=== PATIENT | female | born 1930 | race American Indian/Alaskan Native ===

== ENCOUNTER 2016-07-28 05:44 | Inpatient (IN) | payer MEDICARE, BC ==
--- NOTE | 2016-07-28 06:09 | ED PDOC ---
Arrival/HPI - General Chief Complaint: Trauma Time Seen by Provider: 07/28/16 05:49 Historian: Patient - History of Present Illness Narrative History of Present Illness (Text): 07/28/16 06:09 Mellisa Hartman is an 85 year old female, whose past medical history includes hypertension, diabetes, trigeminal neuralgia, and dementia, who presents to the Emergency department brought in by EMS status post fall at home. As per EMS, patient was found on the ground at home and family was unsure as to how long she was on the floor. Patient reports diffuse body aches. Patient is a poor historian. Limited HPI and ROS due to patient's dementia. Time/Duration: Other (today) Symptom Onset: Sudden Symptom Course: Unchanged Activities at Onset: Rest, Light Context: Home Past Medical History - Provider Review Nursing Documentation Reviewed: Yes - Neurological Hx Alzheimer's Disease: Yes Hx Dementia: Yes Other/Comment: Per EMS report - Psychiatric Hx Substance Use: (poor histo) Family/Social History - Physician Review Nursing Documentation Reviewed: Yes Family/Social History: No Known Family HX Smoking Status: poor histo Hx Alcohol Use: (poor histo) Hx Substance Use: (poor histo) Allergies/Home Meds Allergies/Adverse Reactions: Allergies No Known Allergies Allergy (Verified 07/28/16 05:57) Home Medications: Home Meds Medication Instructions Recorded Confirmed Levetiracetam [Roweepra] 1,500 mg PO BID 07/28/16 07/28/16 Metformin HCl [Glucophage] 500 mg PO BID 07/28/16 07/28/16 Metoprolol Tartrate [Lopressor] 25 mg PO BID 07/28/16 07/28/16 Review of Systems - Review of Systems Systems not reviewed;Unavailable: Dementia Musculoskeletal: Myalgias Physical Exam Vital Signs Reviewed: Yes Vital Signs Temp Pulse Resp BP Pulse Ox 07/28/16 15:00 98.8 F 78 18 188/92 H 98 07/28/16 13:30 80 18 190/100 H 98 07/28/16 11:40 78 18 171/99 H 98 07/28/16 09:11 72 18 166/76 H 97 07/28/16 07:50 98.8 F 98 H 20 177/86 H 98 07/28/16 07:25 98.8 F 82 20 155/76 H 94 L 07/28/16 06:15 92 H 18 144/78 100 07/28/16 05:56 98.5 F 105 H 20 111/74 100 Temperature: Afebrile Blood Pressure: Normal Pulse: Regular Respiratory Rate: Normal Appearance: Positive for: Non-Toxic Pain Distress: None Mental Status: Positive for: Confused, other (Alert) - Systems Exam Head: Present: Atraumatic, Normocephalic Pupils: Present: PERRL Extroacular Muscles: Present: EOMI Conjunctiva: Present: Normal Mouth: Present: Moist Mucous Membranes Neck: Present: Normal Range of Motion Respiratory/Chest: Present: Clear to Auscultation, Good Air Exchange. No: Respiratory Distress, Accessory Muscle Use Cardiovascular: Present: Regular Rate and Rhythm, Normal S1, S2. No: Murmurs Abdomen: Present: Normal Bowel Sounds. No: Tenderness, Distention, Peritoneal Signs Upper Extremity: Present: Normal ROM, NORMAL PULSES, Neurovascularly Intact. No : Cyanosis, Edema Lower Extremity: Present: NORMAL PULSES, Normal ROM. No: Edema, Cyanosis Neurological: Present: GCS=15, CN II-XII Intact Skin: Present: Warm, Dry, Normal Color. No: Rashes Psychiatric: Present: Alert Medical Decision Making ED Course and Treatment: 07/28/16 06:09 Impression: 85 year old female brought in by EMS s/p fall at home. Plan: -- CT Head w/o contrast -- EKG -- Chest X-ray -- Labs, cardiac enzymes, ammonia, alcohol level, blood cultures -- Urinalysis, urine drug screen, urine cultures -- Reassess and disposition Prior Visits: Notes and results from previous visits were reviewed. Progress Notes: Reviewed EKG, NSR at [address] Non-specific ST/T wave changes. - Lab Interpretations Microbiology Results: Microbiology Results 07/28/16 07:00 Blood-Venous Blood Culture - Preliminary NO GROWTH AFTER 48 HOURS 07/28/16 06:40 Blood-Venous Blood Culture - Preliminary NO GROWTH AFTER 48 HOURS 07/28/16 07:00 Urine,Clean Catch Urine Culture - Final No Growth (<1,000 CFU/ML) Lab Results: 07/29/16 07:30 07/29/16 07:30 Lab Results 07/29/16 08:40: TSH 3rd Generation 1.44 07/29/16 08:40: Iron 51, TIBC 280, % Saturation 18 L 07/29/16 07:30: Hemoglobin A1c 5.1 07/29/16 07:30: Sodium 139, Potassium 3.8, Chloride 103, Carbon Dioxide 27, Anion Gap 13, BUN 10, Creatinine 0.7, Est GFR ( Amer) > 60, Est GFR (Non- Af Amer) > 60, Random Glucose 77, Calcium 11.0 H, Magnesium 1.5 L, Ferritin 35.1 , Total Bilirubin 0.6, AST 25, ALT 29, Alkaline Phosphatase 101, Total Creatine Kinase 61, Troponin I 0.06 D, Total Protein 7.2, Albumin 3.8, Globulin 3.4, Albumin/Globulin Ratio 1.1, Vitamin B12 737, Folate > 20.0 07/29/16 07:30: WBC 6.4 D, RBC 4.21, Hgb 10.5 L, Hct 31.0 L, MCV 73.6 L, MCH 24.9 L, MCHC 33.9, RDW 15.3 H, Plt Count 322, MPV 10.0, Gran % 51.4, Lymph % ( Auto) 37.3 H, [place] % (Auto) 8.8 H, Eos % (Auto) 1.9, Baso % (Auto) 0.6, Gran # 3.27, Lymph # 2.4, [place] # 0.6, Eos # 0.1, Baso # 0.04 07/29/16 06:30: Procalcitonin < 0.50 H 07/28/16 13:30: POC Glucose (mg/dL) 97 07/28/16 07:00: Urine Opiates Screen Negative, Urine Methadone Screen Negative, Ur Barbiturates Screen Negative, Ur Phencyclidine Scrn Negative, Ur Amphetamines Screen Negative, U Benzodiazepines Scrn Negative, U Oth Cocaine Metabols Negative, U Cannabinoids Screen Negative 07/28/16 07:00: Urine Color Yellow, Urine Appearance Clear, Urine pH 7.0, Ur Specific [place] 1.015, Urine Protein Negative, Urine Glucose (UA) Negative, Urine Ketones Negative, Urine Blood Negative, Urine Nitrate Negative, Urine Bilirubin Negative, Urine Urobilinogen 0.2, Ur Leukocyte Esterase Negative 07/28/16 06:40: Alcohol, Quantitative < 10 07/28/16 06:40: Ammonia 14 07/28/16 06:40: Sodium 139, Potassium 4.1, Chloride 102, Carbon Dioxide 28, Anion Gap 13, BUN 14, Creatinine 0.8, Est GFR ( Amer) > 60, Est GFR (Non- Af Amer) > 60, Random Glucose 114 H, Calcium 11.1 H, Phosphorus 2.7, Magnesium 1.4 L, Total Bilirubin 0.5, AST 25, ALT 22, Alkaline Phosphatase 104, Lactate Dehydrogenase 554, Total Creatine Kinase 56, Troponin I 0.03, Total Protein 7.6 , Albumin 4.2, Globulin 3.5, Albumin/Globulin Ratio 1.2 07/28/16 06:40: PT 11.3, INR 1.05, APTT 22.7 L 07/28/16 06:40: WBC 12.3 H, RBC 4.23, Hgb 10.4 L, Hct 31.5 L, MCV 74.5 L, MCH 24.6 L, MCHC 33.0, RDW 15.4 H, Plt Count 346, MPV 9.4, Gran % 85.5 H, Lymph % ( Auto) 9.3 L, [place] % (Auto) 4.9, Eos % (Auto) 0.1 L, Baso % (Auto) 0.2, Gran # 10.53 H, Lymph # 1.2, [place] # 0.6, Eos # 0.0, Baso # 0.03 - RAD Interpretation Radiology Orders: 07/28/16 06:22 HEAD W/O CONTRAST [CT] Stat 07/28/16 06:23 CHEST PORTABLE [RAD] Stat 07/28/16 07:14 PELVIS ONE VIEW [RAD] Stat 07/28/16 08:42 BRAIN WITHOUT CONTRAST [MRI] Stat 07/28/16 12:10 CHEST W/O CONTRAST [CT] Urgent - Medication Orders Current Medication Orders: Acetaminophen (Tylenol 325mg Tab) 650 mg PO Q6H PRN PRN Reason: Fever >100.4 F Insulin Human Lispro (Humalog Med) 0 units SC ACHS [facility] PRN Reason: Protocol Last Admin: 07/30/16 17:31 Dose: Not Given Non-Admin Reason: Blood Sugar Parameter Levetiracetam (Keppra) 500 mg PO BID [facility] Last Admin: 07/30/16 17:32 Dose: 500 mg Magnesium Oxide (Mag-Ox) 400 mg PO BID [facility] Last Admin: 07/30/16 17:33 Dose: 400 mg Metoprolol Tartrate (Lopressor) 25 mg PO BID [facility] Last Admin: 07/30/16 17:32 Dose: 25 mg Pantoprazole Sodium (Protonix Ec Tab) 40 mg PO 0630 [facility] Last Admin: 07/30/16 10:09 Dose: 40 mg Ziprasidone (Geodon Inj) 10 mg IM Q6H PRN PRN Reason: Agitation Last Admin: 07/30/16 11:08 Dose: 10 mg Discontinued Medications Clonidine HCl (Catapres-Tts2 0.2 Mg/24 Hr) 1 patch TD ONCE STA Stop: 07/28/16 15:12 Last Admin: 07/28/16 15:20 Dose: 1 patch Ceftriaxone Sodium (Rocephin 1 Gram Ivpb) 1 gm in 100 mls @ 100 mls/hr IVPB DAILY [facility] PRN Reason: Protocol Last Admin: 07/29/16 17:23 Dose: Azithromycin (Zithromax 500mg In Ns) 500 mg in 250 mls @ 167 mls/hr IVPB DAILY [facility] PRN Reason: Protocol Last Admin: 07/29/16 17:24 Dose: Magnesium Sulfate 2 gm/ Sodium (Chloride) 104 mls @ 102 mls/hr IVPB ONCE ONE Stop: 07/29/16 09:13 Last Admin: 07/29/16 17:23 Dose: Magnesium Sulfate/Dextrose (Magnesium Sulfate 1 Gm/100 Ml D5w) 1 gm in 100 mls @ 100 mls/hr IV ONCE ONE Stop: 07/30/16 12:18 Last Admin: 07/30/16 13:55 Dose: 100 mls/hr Potassium Chloride (Potassium Chloride 10 Meq/100 Ml) 10 meq in 100 mls @ 100 mls/hr IVPB Q2H [facility] Stop: 07/30/16 14:29 Last Admin: 07/30/16 15:37 Dose: 100 mls/hr Levetiracetam (Keppra) 1,500 mg PO BID [facility] Last Admin: 07/30/16 10:08 Dose: 1,500 mg Lorazepam (Ativan) 0.5 mg IM STAT STA PRN Reason: Protocol Stop: 07/28/16 22:55 Last Admin: 07/29/16 00:15 Dose: 0.5 mg Lorazepam (Ativan) 1 mg IM ONCE ONE PRN Reason: Protocol Stop: 07/29/16 15:42 Last Admin: 07/29/16 17:22 Dose: Not Given Non-Admin Reason: Patient Refused Metformin HCl (Glucophage) 500 mg PO BID [facility] Last Admin: 07/29/16 10:18 Dose: Not Given Non-Admin Reason: NPO - Transfer of Care Patient signed out to Dr:: liz labs ct xray and dispo - Scribe Statement The provider has reviewed the documentation as recorded by the Scribstone Arredondo All medical record entries made by the [place] were at my direction and personally dictated by me. I have reviewed the chart and agree that the record accurately reflects my personal performance of the history, physical exam, medical decision making, and the department course for this patient. I have also personally directed, reviewed, and agree with the discharge instructions and disposition. Disposition/Present on Arrival - Present on Arrival Any Indicators Present on Arrival: No History of DVT/PE: No History of Uncontrolled Diabetes: No Urinary Catheter: No History of Decub. Ulcer: No History Surgical Site Infection Following: None - Disposition Have Diagnosis and Disposition been Completed?: Yes Diagnosis: Altered mental status Disposition: HOME/ ROUTINE Disposition Time: 07:00 Patient Problems: Current Active Problems Problem Status Onset Altered mental status Acute Condition: FAIR
[2016-07-28 06:58] LABS: ADD MANUAL DIFF? NO
[2016-07-28 07:04] LABS: BASO # 0.03 K/mm3 (0.0-2.0); BASO % 0.2 % (0.0-3.0); EOS % 0.1 % (1.5-5.0); GRAN # 10.53 (1.4-6.5); GRAN % 85.5 % (50.0-68.0); HEMATOCRIT 31.5 % (36.0-48.0); LYMPH # 1.2 (1.2-3.4); LYMPH % 9.3 % (22.0-35.0); MEAN CELL VOLUME 74.5 fL (80.0-105.0); MEAN CORPUSCULAR HEMOGLOBIN 24.6 pg (25.0-35.0); MEAN PLATELET VOLUME 9.4 fl (7.0-11.0); MONO # 0.6 (0.1-0.6); MONO % 4.9 % (1.0-6.0); PLATELET COUNT 346 10^3/uL (120.0-450.0); RED CELL DISTRIBUTION WIDTH 15.4 % (11.5-14.5); WHITE BLOOD COUNT 12.3 10^3/ul (4.5-11.0)
[2016-07-28 07:17] LABS: ALB/GLOB RATIO 1.2 (1.1-1.8); ALKALINE PHOSPHATASE 104 U/L (38-133); ALT/SGPT 22 U/L (7-56); AST/SGOT 25 U/L (15-39); BILIRUBIN,TOTAL 0.5 mg/dL (0.2-1.3); BLOOD UREA NITROGEN 14 mg/dL (7-21); CALCIUM 11.1 mg/dL (8.4-10.5); CARBON DIOXIDE 28 mmol/L (21-33); CHLORIDE 102 mmol/L (98-107); GFR AFRICAN-AMERICAN > 60; GLUCOSE,RANDOM 114 mg/dL (70-110); INR 1.05 (0.93-1.08); MAGNESIUM 1.4 mg/dL (1.7-2.2); PARTIAL THROMBOPLASTIN TIME 22.7 Seconds (23.7-30.8); PHOSPHOROUS 2.7 mg/dL (2.5-4.5); POTASSIUM 4.1 mmol/L (3.6-5.0); SODIUM 139 mmol/L (132-148); TOTAL PROTEIN 7.6 g/dL (5.8-8.3)
--- NOTE | 2016-07-28 07:21 | ED PDOC ---
Physical Exam Vital Signs Temp Pulse Resp BP Pulse Ox 07/28/16 06:15 92 H 18 144/78 100 07/28/16 05:56 98.5 F 105 H 20 111/74 100 Medical Decision Making ED Course and Treatment: 07/28/16 07:00 Patient signed out to me by Dr. Olguin pending labs, CT, reevaluation, and disposition. 07/28/16 08:25 Patien with son at bedside. Son explained he is unsure how she fell. Patient can 't verbalize how she fell. Patient keeps saying "thank you" and "okay okay." Son states this is not her baseline. He states in the morning she is a little confused but this does not usually happen. Son reports patient has a history of seizures and is on Keppra 1500 BID. Differential diagnosis includes but is not limited to: CVA vs seizure Paged Dr. Fuller (PMD: Dr. Rodarte) 07/28/16 08:[address] Fuller who agrees with plan to place on tele observation for CVA vs Sz. Recommended Dr. Urrutia for consult and MRI which she will f/u results on. - Critical Care Critical Care Minutes: 30 minutes - Lab Interpretations Lab Results: 07/28/16 06:40 07/28/16 06:40 Lab Results 07/28/16 07:00: Urine Opiates Screen Negative, Urine Methadone Screen Negative, Ur Barbiturates Screen Negative, Ur Phencyclidine Scrn Negative, Ur Amphetamines Screen Negative, U Benzodiazepines Scrn Negative, U Oth Cocaine Metabols Negative, U Cannabinoids Screen Negative 07/28/16 07:00: Urine Color Yellow, Urine Appearance Clear, Urine pH 7.0, Ur Specific [place] 1.015, Urine Protein Negative, Urine Glucose (UA) Negative, Urine Ketones Negative, Urine Blood Negative, Urine Nitrate Negative, Urine Bilirubin Negative, Urine Urobilinogen 0.2, Ur Leukocyte Esterase Negative 07/28/16 06:40: Alcohol, Quantitative < 10 07/28/16 06:40: Ammonia 14 07/28/16 06:40: Sodium 139, Potassium 4.1, Chloride 102, Carbon Dioxide 28, Anion Gap 13, BUN 14, Creatinine 0.8, Est GFR ( Amer) > 60, Est GFR (Non- Af Amer) > 60, Random Glucose 114 H, Calcium 11.1 H, Phosphorus 2.7, Magnesium 1.4 L, Total Bilirubin 0.5, AST 25, ALT 22, Alkaline Phosphatase 104, Lactate Dehydrogenase 554, Total Creatine Kinase 56, Troponin I 0.03, Total Protein 7.6 , Albumin 4.2, Globulin 3.5, Albumin/Globulin Ratio 1.2 07/28/16 06:40: PT 11.3, INR 1.05, APTT 22.7 L 07/28/16 06:40: WBC 12.3 H, RBC 4.23, Hgb 10.4 L, Hct 31.5 L, MCV 74.5 L, MCH 24.6 L, MCHC 33.0, RDW 15.4 H, Plt Count 346, MPV 9.4, Gran % 85.5 H, Lymph % ( Auto) 9.3 L, [place] % (Auto) 4.9, Eos % (Auto) 0.1 L, Baso % (Auto) 0.2, Gran # 10.53 H, Lymph # 1.2, [place] # 0.6, Eos # 0.0, Baso # 0.03 - RAD Interpretation Radiology Orders: 07/28/16 06:22 HEAD W/O CONTRAST [CT] Stat 07/28/16 06:23 CHEST PORTABLE [RAD] Stat 07/28/16 07:14 PELVIS ONE VIEW [RAD] Stat Disposition/Present on Arrival - Present on Arrival Any Indicators Present on Arrival: No History of DVT/PE: No History of Uncontrolled Diabetes: No Urinary Catheter: No History of Decub. Ulcer: No History Surgical Site Infection Following: None - Disposition Have Diagnosis and Disposition been Completed?: Yes Diagnosis: Altered mental status Disposition: HOME/ ROUTINE Disposition Time: 08:42 Patient Plan: Observation Condition: FAIR Referrals: Bienvenido Rodarte MD [Primary Care Provider] - Follow up with primary NIHSS Scale ([place]) Time Performed: 08:20 - How Severe is the [place] Baseline Visual: 0=No visual loss
[2016-07-28 07:22] LABS: URINE APPEARANCE CLEAR (CLEAR); URINE BILIRUBIN NEGATIVE (NEGATIVE); URINE BLOOD NEGATIVE (NEGATIVE); URINE COLOR YELLOW (YELLOW); URINE GLUCOSE (UA) NEGATIVE (NEGATIVE); URINE KETONE NEGATIVE (NEGATIVE); URINE LEUKOCYTE ESTERASE NEGATIVE Leu/uL (NEGATIVE); URINE PROTEIN NEGATIVE mg/dL (<30 mg/dL); URINE UROBILINOGEN 0.2 E.U./dL (<1 E.U./dL)
[2016-07-28 07:27] LABS: TROPONIN I 0.03 ng/mL
--- NOTE | 2016-07-28 07:34 | CT ---
PROCEDURE: CT HEAD WITHOUT CONTRAST. HISTORY: Altered mental status COMPARISON: None available. TECHNIQUE: Axial computed tomography images were obtained through the head/brain without intravenous contrast. Radiation dose: Total exam DLP = 680.76 mGy-cm. This CT exam was performed using one or more of the following dose reduction techniques: Automated exposure control, adjustment of the mA and/or kV according to patient size, and/or use of iterative reconstruction technique. FINDINGS: HEMORRHAGE: No intracranial hemorrhage. BRAIN: There is an old infarction in the right posterior parietal and occipital lobes. There are mild chronic microangiopathic changes. There is no mass, mass effect or abnormal extra-axial fluid collection. VENTRICLES: There is moderate age-related global parenchymal volume loss and proportionate enlargement of the ventricles and cortical sulci. CALVARIUM: There is no calvarial fracture or extracranial soft tissue swelling. PARANASAL SINUSES: Predominantly clear. MASTOID AIR CELLS: Bilateral mastoid air cells are underdeveloped OTHER FINDINGS: None. IMPRESSION: No acute intracranial abnormality. 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
--- NOTE | 2016-07-28 08:26 | RAD ---
PROCEDURE: Radiographs of the pelvis. HISTORY: fall COMPARISON: None. FINDINGS: BONES: Pelvic Bones: Unremarkable. Hips: Grossly unremarkable. JOINTS: Sacroiliac Joints: Unremarkable. Pubic Symphysis: Mild degenerative changes OTHER FINDINGS: None. IMPRESSION: No acute findings
--- NOTE | 2016-07-28 08:27 | RAD ---
HISTORY: ams COMPARISON: No prior. FINDINGS: LUNGS: No active pulmonary disease. PLEURA: No significant pleural effusion identified, no pneumothorax apparent. CARDIOVASCULAR: Normal. OSSEOUS STRUCTURES: No significant abnormalities. VISUALIZED UPPER ABDOMEN: Normal. OTHER FINDINGS: None. IMPRESSION: No active disease.
--- NOTE | 2016-07-28 10:57 | CARD ---
APPROVED REPORT EKG Measurement Heart [id number] <Conclusion> Normal sinus rhythm Left bundle branch block
--- NOTE | 2016-07-28 11:23 | MRI ---
PROCEDURE: MRI BRAIN WITHOUT CONTRAST HISTORY: AMS r/o CVA COMPARISON: CT of the head performed on the same day TECHNIQUE: Multiplanar, multisequence MR images of the brain were obtained without intravenous contrast enhancement. The study was degraded by motion artifact FINDINGS: HEMORRHAGE: There is a chronic hemorrhage and encephalomalacia in the right parietal lobe. DWI: No evidence of an acute or early subacute infarction. The study is limited BRAIN PARENCHYMA: No mass effect or edema. No atrophy or chronic microvascular ischemic changes. VENTRICLES: Unremarkable. No hydrocephalus. CRANIUM: Unremarkable. ORBITS: Grossly unremarkable. PARANASAL SINUSES/MASTOIDS: Clear VASCULAR SYSTEM: Skull base flow voids intact. OTHER FINDINGS: None. 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 The study is severely limited by motion artifact.
--- NOTE | 2016-07-28 12:35 | HP ---
The patient is 85 years old who was brought by EMS when she had a mechanical fall at home. According to EMS, she was found on the floor when they reached the field. Family reported they do not know ho w long she was on the floor. They do not know if she felt dizzy or she had a mechanical fall. Howev er, she complained of generalized weakness, and complained of feeling very weak with body aches and p ain. The patient does not give much history. She says yes and okay to everything. PAST MEDICAL HISTORY: Significant for mild dementia, and past medical history is significant for: 1. Hypertension. 2. Non-insulin dependent diabetes. 3. History of seizure disorder. ALLERGIES: She is not allergic to any medications. MEDICATIONS AT HOME: She is on metoprolol 25 twice a day, metformin 500 twice a day, Keppra 1500 twi ce a day. SOCIAL HISTORY: She lives with her family. Denies smoking or drinking or alcohol use. REVIEW OF SYSTEMS: She complained of generalized aches and pain and weakness. PHYSICAL EXAMINATION: GENERAL: She is awake and alert. VITAL SIGNS: She has temperature of 101.9, pulse 82, respirations 20, blood pressure 136/61. LUNGS: Bilateral fair airflow. No rhonchi or crackle. HEART: S1, S2 audible. ABDOMEN: Soft, nontender. No rebound, no guarding. NEUROLOGIC: The patient is awake and alert, but confused, disoriented. LABORATORY EXAM: WBC 12.3, hemoglobin 10.4, hematocrit 31.5, platelets 346. PT 11.3, INR 1.05. Marah alayna: Sodium 139, potassium 4.1, chloride 102, CO2 of 28, BUN 14, creatinine 0.8, blood sugar 114, calcium 11.1, phosphorus 2.7, magnesium 1.4. LFTs are within normal limits. Urinalysis is negative . Urine tox is negative. CT scan of the head shows old right [employer] and MCA territory infarct involving occipital and posterior p arietal lobes. X-ray of chest shows no active disease. MRI of the brain shows old CVA. ASSESSMENT: 1. Leukocytosis with high-grade fever of 101. Etiology unknown. 2. Altered mental status. 3. Status post fall. 4. Non-insulin dependent diabetes. 5. Hypertension. 6. Seizure disorder. PLAN: Blood culture and urine cultures are sent. Will start empirically on Rocephin and vancomycin. We will get ID ____ by Dr. Webb and out of bed to chair. GI and DVT prophylaxis has been sta rted. Marley Fuller MD cc: [phone] TT: 07/28/2016 12:35:09 jn
[2016-07-28] MEDS: cefTRIAXone 1 gm 1 GM/100 ML BAG IVPB SCH (13:10)
[2016-07-28] MEDS: Insulin Lispro (humaLOG) MEDIUM Coverage SC SCH ×3 (13:30→22:14)
[2016-07-28] MEDS: Azithromycin 500MG/NS 250ml 500 MG/250 ML BAG IVPB SCH (14:15)
--- NOTE | 2016-07-28 14:34 | CT ---
PROCEDURE: CT Chest without contrast HISTORY: /sob COMPARISON: None. TECHNIQUE: Contiguous axial images were obtained through the chest without intravenous contrast enhancement. Sagittal and coronal reconstructions were performed. Radiation dose (DLP): 319 mGy-cm. This CT exam was performed using one or more of the following dose reduction techniques: Automated exposure control, adjustment of the mA and/or kV according to patient size, and/or use of iterative reconstruction technique. FINDINGS: LUNGS: Clear lungs. Visualized airway clear. MEDIASTINUM: Unremarkable thoracic aorta. No aneurysm. Normal sized heart. Main pulmonary artery unremarkable. No vascular congestion. No lymphadenopathy. PLEURA: No pleural fluid. No pneumothorax. BONES: No fracture. No destructive lesion. UPPER ABDOMEN: Grossly unremarkable. OTHER FINDINGS: None. IMPRESSION: Unremarkable non-contrast enhanced CT of the chest.
[2016-07-28 16:30] VITALS: BMI 21.4
--- NOTE | 2016-07-28 19:30 | CON ---
DATE: 07/28/2016 CHIEF COMPLAINT: Change in mental status as well as questionable seizure. HISTORY OF PRESENT ILLNESS: This is an 85-year-old woman with past medical history of hyperten marylou, non-insulin dependent diabetes mellitus, history of seizure disorder on Keppra 1500 mg p.o. b.i .d. , who came to the hospital. Was found on the floor and is unaware of how long she was there. Sh stone does not know if she felt dizzy or if she had a mechanical fall. She has generalized weakness and has generalized aches and body pain but gives a very limited history. Does seem as to have moderate to severe cognitive impairment. Her MRI of the brain just shows chronic hemorrhage, encephalomalacia in the right parietal and right occipital lobe to indicate old prior infarcts, likely from where she gets seizures and, therefore, she is on Keppra 1500 mg p.o. b.i.d. She has elevated systolic and di astolic blood pressures. She is currently delirious right now. 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 ALLERGIES: No known drug allergies. REVIEW OF SYSTEMS: A 14-point review of systems negative except as in the HPI. SOCIAL HISTORY: No illicit drug use, smoking, or ETOH abuse. FAMILY HISTORY: Noncontributory. ALLERGIES: No known drug allergies. MEDICATIONS: Reviewed via nursing reconciliation sheet. PHYSICAL EXAMINATION: VITAL SIGNS: Temperature of 98, pulse rate of 72, blood pressure 166/76, respiratory rate 18, oxygen saturation 97% on room air. GENERAL: The patient is sitting up in bed in no acute distress. HEENT: Atraumatic, normocephalic. PERRLA. Extraocular muscles intact. NECK: Supple, no JVD, no adenopathy noted. LUNGS: Clear to auscultation. No adventitious sounds. HEART: S1, S2, normal rate and rhythm. No murmurs, rubs, or gallops. ABDOMEN: Soft, nontender, nondistended. Bowel sounds present. EXTREMITIES: No clubbing, no cyanosis. Peripheral pulses 2+ felt bilaterally. NEUROLOGIC: The patient is alert and oriented to person and place, not much of month or year. Recal l after 5 minutes is 0/3. She has poor judgment, poor attention span, slow thought process. Confabu lation. Cranial nerves II through XII are intact. MOTOR: Slight increased tone throughout and has mild subtle left side weakness from prior CVA compar ed to the right. Toes are equivocal. SENSORY: Withdraws to localized noxious stimulus. Light touch . DTRs 1+ throughout. COORDINATION AND GAIT: Deferred for now. LABORATORY DATA: Sodium is 139, potassium 4.1, chloride 102, carbon dioxide 13, BUN of 14, creatinin e 0.8. Random glucose of 114. ASSESSMENT AND PLAN: This is a 85-year-old woman with history of hypertension, non-insulin dependent diabetes mellitus, history of seizure disorder likely from chronic hemorrhage and encephalomalacia i n the right parietal occipital lobe, prior infarcts. Has definitely cognitive impairment in terms of moderate to severe. Came in, was found on the floor mechanical or not leukocyte esteras e, elevated temperature could indicate a systemic inflammatory response syndrome and found to be hype rtensive systolically and diastolically. She is currently under delirium likely secondary to hyperte nsive urgency and had likely a questionable breakthrough seizure. At this time, we will get a Keppra level and continue with Keppra 1500 mg p.o. b.i.d. If cannot give p.o., can give IV and Ativan 0.5 mg p.r.n. for acute onset of agitation. Could recommend a psychiatric consult for delirium from ashok atric perspective. At this time, will likely need subacute rehabilitation and possibly long-term car e or home health aide. Get case management on board. No further neurological workup needed at this time. MRI brain just showed old chronic ischemic changes, old chronic hemorrhage and an old right pa rietal and occipital lobe encephalomalacia indicating prior infarcts. Continue current present medic al management, PT/OT, and avoid nighttime interruptions and avoid overly sedating medications. Rhiannon nue with current present medical management. Please reconsult if necessary. Naren Urrutia MD cc: [phone] TT: 07/28/2016 19:29:50 Confirmation # [id number] Dictation # [id number]
--- NOTE | 2016-07-29 01:34 | CON ---
DATE: 07/28/2016 SUBJECTIVE: The patient was seen in the Emergency Room earlier today. Information is gathered from the son, who lives downstairs in the same house. The patient lives upstairs. The patient was mary alice t in, found at home on the floor. CHIEF COMPLAINT: The patient with a change of mental status. HISTORY OF PRESENT ILLNESS: This is an 85-year-old female with past medical history of hypertension, diabetes, trigeminal nerve neuralgia and dementia. The patient also has a history of seizures. The patient's son states that the patient is usually somewhat ambulatory with assistance as her mental s tatus is on and off. She does have dementia; however, he thinks that she is worse than usual and sh e had been fine until she was found on the floor. In the Emergency Room, the patient had low-grade t emperatures of 99 and infectious disease consultation requested. There has been no abdominal repor raji. No chest pain reported, no shortness of breath. Again it is difficult to obtain an accurate hi story. There has been no diarrhea or constipation reported. PAST MEDICAL HISTORY: Significant for seizures, hypertension, diabetes, trigeminal neuralgia, eduardo ia. PAST SURGICAL HISTORY: Noncontributory. ALLERGIES: The patient has no known allergies. MEDICATIONS AT HOME: Reviewed and include Lopressor, Glucophage, , a.m. PHYSICAL EXAMINATION: GENERAL: On exam, she is in bed. She is obviously confused, does not follow commands. VITAL SIGNS: With a temperature of 99.5, heart rate of 105, respiratory rate of 20, blood pressure 1 88/90. HEENT: Unremarkable. NECK: Supple. LUNGS: Have decreased breath sounds. HEART: Normal S1, S2. ABDOMEN: Soft, nontender. No rebound, no guarding. LABORATORY EXAMINATION: Reveals a white count of 12,300, hemoglobin of 10, platelets of 346. Chemis tries reveal the BUN of 14, creatinine of 0.4. Urinalysis is noted and toxicology screen is negative . Urinalysis is unremarkable. Chest x-ray is reported to be negative. The patient had a CAT scan o f the chest, which showed an unremarkable noncontrast CAT scan of the chest. There is no evidence of pneumonia. The lungs are clear. Visualized airways are clear. The patient also had an MRI of the head, which reveals chronic hemorrhage and encephalomalacia in the right partial parietal lobe. Limi raji study and is without contrast. The patient also had a CAT scan of the head. ASSESSMENT AND PLAN: An 85-year-old female with hypertension, diabetes, with trigeminal neuralgia, d ementia, seizures, admitted from home, was found unresponsive with a white count of 12,300, heart rat e of 105. Systemic inflammatory response syndrome with a negative CAT scan of the chest, negative chest x-ray, negative urinalysis. Abdominal examination is soft, no obvious source. Will continue to treat with ceftriaxone and azithromycin as ordered by Dr. Fuller pending the blood cultures and urine cultures and must rule out possible recurrence of seizures and recommend a neurology evaluation and we will fo llow closely with you. Yaron Webb MD cc: [id number] TT: 07/29/2016 01:33:43 Confirmation # [id number] Dictation # [id number] lena
[2016-07-29] MEDS: Pantoprazole 40 mg EC Tab PO SCH (05:46)
[2016-07-29] MEDS: Insulin Lispro (humaLOG) MEDIUM Coverage SC SCH ×4 (07:48→22:00)
[2016-07-29] MEDS ORDERED: Magnesium Sulfate 2 GM in Sodium Chloride 0.9% 100 ML IVPB ONE (08:12)
[2016-07-29 08:27] LABS: ADD MANUAL DIFF? NO
[2016-07-29 08:30] LABS: BASO # 0.04 K/mm3 (0.0-2.0); BASO % 0.6 % (0.0-3.0); EOS # 0.1 (0.0-0.7); EOS % 1.9 % (1.5-5.0); GRAN # 3.27 (1.4-6.5); GRAN % 51.4 % (50.0-68.0); LYMPH # 2.4 (1.2-3.4); LYMPH % 37.3 % (22.0-35.0); MEAN CELL VOLUME 73.6 fL (80.0-105.0); MEAN CORPUSCULAR HEMOGLOBIN 24.9 pg (25.0-35.0); MEAN CORPUSCULAR HGB CONC 33.9 g/dl (31.0-37.0); MONO # 0.6 (0.1-0.6); MONO % 8.8 % (1.0-6.0); PLATELET COUNT 322 10^3/uL (120.0-450.0); RED CELL DISTRIBUTION WIDTH 15.3 % (11.5-14.5); WHITE BLOOD COUNT 6.4 10^3/ul (4.5-11.0)
[2016-07-29 08:45] LABS: ALB/GLOB RATIO 1.1 (1.1-1.8); ALKALINE PHOSPHATASE 101 U/L (38-133); ALT/SGPT 29 U/L (7-56); AST/SGOT 25 U/L (15-39); BILIRUBIN,TOTAL 0.6 mg/dL (0.2-1.3); BLOOD UREA NITROGEN 10 mg/dL (7-21); CARBON DIOXIDE 27 mmol/L (21-33); CHLORIDE 103 mmol/L (98-107); GFR AFRICAN-AMERICAN > 60; GLUCOSE,RANDOM 77 mg/dL (70-110); MAGNESIUM 1.5 mg/dL (1.7-2.2); POTASSIUM 3.8 mmol/L (3.6-5.0); SODIUM 139 mmol/L (132-148); TOTAL PROTEIN 7.2 g/dL (5.8-8.3)
[2016-07-29 08:56] LABS: TROPONIN I 0.06 ng/mL
[2016-07-29 09:09] LABS: IRON 51 ug/dL (45-180)
[2016-07-29] MEDS: Magnesium Oxide 400 mg Tab UD PO SCH ×2 (10:19→17:24)
--- NOTE | 2016-07-29 16:55 | CP.PCM.PN ---
Subjective - Date & Time of Evaluation Date of Evaluation: 07/29/16 Time of Evaluation: 16:45 - Subjective Subjective: Pt has very poor veins,needs iv access. Objective - Vital Signs/Intake and Output Vital Signs (last 24 hours): Temp Pulse Resp BP Pulse Ox 97.6 F 84 20 160/98 H 97 07/29/16 08:13 07/29/16 08:13 07/29/16 08:13 07/29/16 08:13 07/29/16 08:13 Intake and Output: 07/29/16 07/29/16 06:59 18:59 Intake Total 0 Balance 0 - Medications Medications: Current Medications Acetaminophen (Tylenol 325mg Tab) 650 mg PO Q6H PRN PRN Reason: Fever >100.4 F Ceftriaxone Sodium (Rocephin 1 Gram Ivpb) 1 gm in 100 mls @ 100 mls/hr IVPB DAILY JOCE PRN Reason: Protocol Last Admin: 07/28/16 13:10 Dose: 100 mls/hr Azithromycin (Zithromax 500mg In Ns) 500 mg in 250 mls @ 167 mls/hr IVPB DAILY JOCE PRN Reason: Protocol Last Admin: 07/28/16 14:15 Dose: 167 mls/hr Insulin Human Lispro (Humalog Med) 0 units SC ACHS JOCE PRN Reason: Protocol Last Admin: 07/29/16 11:39 Dose: Not Given Levetiracetam (Keppra) 1,500 mg PO BID [facility] Last Admin: 07/29/16 10:18 Dose: Not Given Magnesium Oxide (Mag-Ox) 400 mg PO BID [facility] Last Admin: 07/29/16 10:19 Dose: Not Given Metoprolol Tartrate (Lopressor) 25 mg PO BID [facility] Last Admin: 07/29/16 10:18 Dose: Not Given Pantoprazole Sodium (Protonix Ec Tab) 40 mg PO 0630 [facility] Last Admin: 07/29/16 05:46 Dose: Not Given - Labs Labs: PT 11.3 Seconds (9.9-11.8) 07/28/16 06:40 INR 1.05 (0.93-1.08) 07/28/16 06:40 APTT 22.7 Seconds (23.7-30.8) L 07/28/16 06:40 - Constitutional Appears: No Acute Distress Assessment and Plan - Assessment and Plan (Free Text) Assessment: Poor venous access Plan: Hep loc insertion attempted several times. It was not successful due to very poor veins. PMD to be notified.
--- NOTE | 2016-07-29 17:19 | CP.PCM.PN ---
Subjective - Date & Time of Evaluation Date of Evaluation: 07/29/16 Time of Evaluation: 09:25 - Subjective Subjective: Comfortable, not in distress, afebrile. Objective - Vital Signs/Intake and Output Vital Signs (last 24 hours): Temp Pulse Resp BP Pulse Ox 97.6 F 84 20 160/98 H 97 07/29/16 08:13 07/29/16 08:13 07/29/16 08:13 07/29/16 08:13 07/29/16 08:13 Intake and Output: 07/29/16 07/29/16 06:59 18:59 Intake Total 0 Balance 0 - Medications Medications: Current Medications Acetaminophen (Tylenol 325mg Tab) 650 mg PO Q6H PRN PRN Reason: Fever >100.4 F Ceftriaxone Sodium (Rocephin 1 Gram Ivpb) 1 gm in 100 mls @ 100 mls/hr IVPB DAILY JOCE PRN Reason: Protocol Last Admin: 07/28/16 13:10 Dose: 100 mls/hr Azithromycin (Zithromax 500mg In Ns) 500 mg in 250 mls @ 167 mls/hr IVPB DAILY JOCE PRN Reason: Protocol Last Admin: 07/28/16 14:15 Dose: 167 mls/hr Insulin Human Lispro (Humalog Med) 0 units SC ACHS JOCE PRN Reason: Protocol Last Admin: 07/29/16 11:39 Dose: Not Given Levetiracetam (Keppra) 1,500 mg PO BID [facility] Last Admin: 07/29/16 10:18 Dose: Not Given Magnesium Oxide (Mag-Ox) 400 mg PO BID [facility] Last Admin: 07/29/16 10:19 Dose: Not Given Metoprolol Tartrate (Lopressor) 25 mg PO BID [facility] Last Admin: 07/29/16 10:18 Dose: Not Given Pantoprazole Sodium (Protonix Ec Tab) 40 mg PO 0630 [facility] Last Admin: 07/29/16 05:46 Dose: Not Given - Labs Labs: PT 11.3 Seconds (9.9-11.8) 07/28/16 06:40 INR 1.05 (0.93-1.08) 07/28/16 06:40 APTT 22.7 Seconds (23.7-30.8) L 07/28/16 06:40 - Constitutional Appears: Non-toxic, No Acute Distress - Head Exam Head Exam: NORMAL INSPECTION - Neck Exam Neck Exam: absent: Meningismus - Respiratory Exam Respiratory Exam: Decreased Breath Sounds - Cardiovascular Exam Cardiovascular Exam: +S1, +S2 - GI/Abdominal Exam GI & Abdominal Exam: Soft. absent: Tenderness Assessment and Plan - Assessment and Plan (Free Text) Plan: Assessment Systemic Inflammatory Response Syndrome, probably due to hypertensive urgency with associated delirium; no source of sepsis identified Seizure disorder HTN DM trigeminal neuralgia dementia Plan Blood and urine cx are negative, CT chest negative for infiltrates - will d/c Rocephin and Zithromax and observe off antibiotics since hse is at risk for nosocomial infections
[2016-07-29] MEDS: cefTRIAXone 1 gm 1 GM/100 ML BAG IVPB SCH (17:23)
[2016-07-29] MEDS: Azithromycin 500MG/NS 250ml 500 MG/250 ML BAG IVPB SCH (17:24)
[2016-07-29 17:33] LABS: FOLATE > 20.0 ng/mL
--- NOTE | 2016-07-29 17:41 | PN ---
DATE: 07/29/2016 CHIEF COMPLAINT: Follow up for change in mental status, questionable seizure. SUBJECTIVE: The patient seen and examined at bedside, is much more calm today and Ativan overnight. No seizures. She is stable on Keppra 1500 mg p.o. b.i.d. She does have moderate severe cognitive i mpairment and had fluctuating delirium over through her hospital stay. Awaiting psychiatrist's recom mendations. 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 ALLERGIES: No known drug allergy. REVIEW OF SYSTEMS: A 14-point review of systems is negative except for the HPI. SOCIAL HISTORY: No illicit drug use, smoking, or ETOH abuse. FAMILY HISTORY: Noncontributory. ALLERGIES: No known drug allergies. MEDICATIONS: Reviewed via nurse's reconciliation sheet. PHYSICAL EXAMINATION: VITAL SIGNS: Reviewed. GENERAL: The patient is sitting up in bed in no acute distress. HEENT: Atraumatic, normocephalic. PERRLA. Extraocular muscles intact. NECK: Supple, no JVD, no adenopathy noted. LUNGS: Clear to auscultation. No adventitious sounds. HEART: S1, S2, normal rate and rhythm. No murmurs, rubs, or gallops. ABDOMEN: Soft, nontender, nondistended. Bowel sounds are present. EXTREMITIES: No clubbing, no cyanosis. Peripheral pulses 2+ felt bilaterally. NEUROLOGIC: The patient is alert, oriented to person and place, not much of month or year. Recall a fter 5 minutes is 0/3. She has poor judgment and poor attention span and confabulates, slow thought process. Cranial nerves II through XII are intact. MOTOR: Slight increased tone throughout. Has mild left-sided weakness from prior CVA compared to th e right. Toes are equivocal. SENSORY: Withdraws to localized noxious stimulus. Light touch is intact. DEEP TENDON REFLEXES: 1+ throughout. COORDINATION AND GAIT: Deferred for now. LABORATORY DATA: Sodium 139, potassium 3.9, chloride 103, carbon dioxide 27, BUN of 10, creatinine 0 .7. Random glucose of 77. Magnesium is 1.5, which is low. ASSESSMENT AND PLAN: This is an 85-year-old woman with history of hypertension, non-insulin dependen t diabetes mellitus, history of seizure disorder, likely from chronic hemorrhage, encephalomalacia in the right parietal occipital lobe indicating prior infarcts, has definitely a moderate to severe cog nitive impairment, came in, was found on the floor. There was question if she had a mechanical fall or not. She had some systematic inflammatory response syndrome, which she had elevated leukocyte est erase and found to have systolic and diastolic elevated blood pressures. Currently, she is much more calm. She has gone through an episode of delirium while she is in the hospital. An MRI of the [facility] showed no acute intracranial abnormalities, chronic hemorrhage and right parietal occipital lobe en cephalomalacia were indicating prior infarcts. At this time, recommend 1. To continue with Keppra 1500 mg p.o. b.i.d. 2. Ativan 0.5 mg p.r.n. for acute onset agitation. 3. Psychiatric consult for delirium and possibly cognitive impairment and medication, possibly agita tion at night. Continue PT, OT evaluation. Avoid nighttime interruptions. Avoid any sedating medic ations. Thank you for this followup. Please reconsult if necessary for any change in mental status. Naren Urrutia MD cc: [phone] TT: 07/29/2016 17:41:09 Confirmation # [id number] Dictation # [id number] viraj
--- NOTE | 2016-07-29 17:52 | PN ---
DATE: 07/29/2016 SUBJECTIVE: The patient is an 85-year-old. Apparently, she had a fall at home. The patient was seen and examined. Awaiting a swallowing eval and awaiting physical therapy. Also, the patient is agita raji and noncooperative, pulling things. PHYSICAL EXAMINATION: GENERAL: Otherwise, she is awake and alert, but confused and disoriented. VITAL SIGNS: She is afebrile, pulse 84, respirations 20, blood pressure 160/98. LUNGS: Bilateral fair airflow, no rhonchi or crackle. HEART: S1, S2 audible. ABDOMEN: Soft, nontender, no rebound, no guarding. NEUROLOGIC: She is awake and alert, but somewhat confused and disoriented, only answers simple quest ions. LABORATORY: WBC 6.4, hemoglobin 10, hematocrit 31, platelet of 322. Chemistry: Sodium 139, potassi um 3.8, chloride 103, CO2 of 27, BUN 10, creatinine 0.7, blood sugar of 77, magnesium 1.5, calcium is 11.1. Urinalysis is unremarkable. CT scan of the chest was done that shows unremarkable noncontras t CT scan. MRI of the brain is unremarkable. ASSESSMENT: 1. Status post fall. 2. Altered mental status. 3. Deconditioning. 4. Difficulty swallowing. 5. Dementia. 6. Non-insulin dependent diabetes. PLAN: We will give her Ativan 1 mg IM one dose stat and then will get therapy evaluation. Swallow e valuation was done later on and it was decided not to feed her. We will start her on IV fluid once pa eros calms down and lets us have IV access in place. The patient spiked fever yesterday. Empirical ly started on Rocephin and Zithromax. . Started on IV fluid. as needed. Physical therapy evaluation will be done. The patient is on anti-seizure medications for now and magnesium has been replaced. We will reevaluate the patient in a.m. Marley Fuller MD cc: [id number] TT: 07/29/2016 17:52:12 Confirmation # [id number] Dictation # [id number] ln
--- NOTE | 2016-07-29 21:44 | CON ---
DATE: 07/29/2016 HISTORY OF PRESENT ILLNESS: The patient is an 85-year-old -[place] female, who was brought t o the Emergency Room yesterday after having been found lying on the floor of her apartment. The shante ent is a poor historian. I spoke to nursing staff. I also spoke at length to the patient's daughter at the bedside, who is a very good historian. The patient was apparently lying on the floor for an hour. Her daughter believes that she fell trying to go walking across the room going to the bathroom and was taking her clothes off and tripped over the clothes. Prior to the fall, the patient was vamshi ke, alert, communicative, talking, conversive, walking around her apartment with a walker and feeding herself; however, since admission, patient has been quite confused, speaking very little, and having signs of cognitive dysfunction which she did not have prior to the fall. PAST MEDICAL HISTORY: She had a right occipital stroke in 04/2016. She had temporary paralysis of t he left side of her body, but that returned. She had a partial impairment of her speech, which also returned, and the patient has been able to live in her apartment helped by her son, who lives [place] in the same house. Up until the time of the stroke, the patient was driving a car. OTHER PAST HISTORY: Includes hypertension, history of seizure disorder since the stroke, non-insulin -dependent diabetes mellitus. PERSONAL HISTORY: As noted above, lives in a 2-family house while her son lives downstairs. She has also a daughter. The patient has been a for 14 years and has been active woman until the time of her stroke in 04/2016. LABORATORY DATA: She had a CT scan of the head revealing an old right infarction in the right air hammer stripper ior parietal and occipital lobes. There also are some mild chronic microangiopathic changes, but no masses. The stroke was over the territory of the posterior cerebral artery and the middle cerebral a rtery. The patient had a CT scan of the chest, which was interpreted as unremarkable. She had an el ectrocardiogram, which was interpreted as being normal sinus rhythm with a QTC interval of 488 and a left bundle branch block. Her laboratory data: She had a white count on admission of 12,300, today is 6400; hemoglobin of 10.5; platelet count 322,000. She had a metabolic profile today that was all normal except for a calcium of 11 and a phosphorus of 1.5 and an O2 saturation of 18. The patient h ad a urine for toxicology and a blood alcohol level which was negative. The patient had culture of c lean catch urine which was negative. Two blood cultures which were normal after 24 hours. CURRENT MEDICATIONS: Include insulin, Keppra 1500 mg b.i.d., Lopressor 25 mg b.i.d., mag ox 40 0 mg b.i.d., Protonix 40 mg daily. She had a stat dose of Ativan 0.5 mg IM and 1 mg IM was today at 3:41. She also was on Glucophage, that was stopped and Rocephin, which was stopped. REVIEW OF SYSTEMS: Unable to ascertain due to patient being a poor historian. PHYSICAL EXAMINATION: VITAL SIGNS: Her blood pressure is 166/93, temperature 98.4, pulse is 88, respirations 19 per minute , O2 saturation is 98%. NEUROLOGIC: Her mental status reveals that she is awake. She seems somewhat confused. She knows sh e is in the hospital. She speaks very softly. Disoriented to spheres. Her recent memory is p oor. She has some thought blocking. The patient has poor eye contact at times. She is somewhat juliane d of hearing. She gets somewhat of a better response when speak louder. Unable to complete total me ntal status examination due to confusion and . IMPRESSION: The patient has an acute neurocognitive impairment, perhaps acute delirium, but right no w she has no agitation, perhaps she became more confused from IM Ativan. She might be somewhat over sedated from doses of Keppra, which is quite large, 1500 mg b.i.d. She has a history of insulin-depe ndent diabetes mellitus. She has a history of seizure disorder. The patient did not pass a swallowi ng evaluation. She is n.p.o. PLAN: I would avoid benzodiazepines in this patient. If she is so agitated, which she does not exhi bit now, that she needs IM medicine, I would at 10 mg of Geodon IM p.r.n. It appears that this could be acute delirium. The etiology, actually, it is not very clear. She might have had a concus marylou. I would, at this point, continue to follow and monitor her mental status, consider lowering th e dose of Keppra due to confusional state. Taz Fernandez MD cc: [id number] TT: 07/29/2016 21:43:51 Confirmation # [id number] Dictation # [id number] tn
[2016-07-30 08:01] LABS: ADD MANUAL DIFF? NO
[2016-07-30 08:08] LABS: BASO # 0.04 K/mm3 (0.0-2.0); BASO % 0.8 % (0.0-3.0); EOS # 0.2 (0.0-0.7); EOS % 3.7 % (1.5-5.0); GRAN # 2.68 (1.4-6.5); GRAN % 51.7 % (50.0-68.0); HEMATOCRIT 31.5 % (36.0-48.0); LYMPH # 1.9 (1.2-3.4); LYMPH % 36.3 % (22.0-35.0); MEAN CELL VOLUME 74.1 fL (80.0-105.0); MEAN CORPUSCULAR HEMOGLOBIN 24.5 pg (25.0-35.0); MEAN PLATELET VOLUME 9.4 fl (7.0-11.0); MONO # 0.4 (0.1-0.6); MONO % 7.5 % (1.0-6.0); PLATELET COUNT 295 10^3/uL (120.0-450.0); RED CELL DISTRIBUTION WIDTH 15.4 % (11.5-14.5); WHITE BLOOD COUNT 5.2 10^3/ul (4.5-11.0)
[2016-07-30 08:19] LABS: ALB/GLOB RATIO 1.1 (1.1-1.8); ALKALINE PHOSPHATASE 96 U/L (38-133); ALT/SGPT 25 U/L (7-56); AST/SGOT 22 U/L (15-39); BILIRUBIN,TOTAL 0.5 mg/dL (0.2-1.3); BLOOD UREA NITROGEN 10 mg/dL (7-21); CARBON DIOXIDE 27 mmol/L (21-33); CHLORIDE 103 mmol/L (98-107); GFR AFRICAN-AMERICAN > 60; GLUCOSE,RANDOM 107 mg/dL (70-110); MAGNESIUM 1.5 mg/dL (1.7-2.2); POTASSIUM 3.5 mmol/L (3.6-5.0); SODIUM 138 mmol/L (132-148); TOTAL PROTEIN 7.1 g/dL (5.8-8.3)
[2016-07-30 08:32] LABS: FREE T4 1.39 ng/dL (0.78-2.19)
[2016-07-30 08:46] LABS: THYROID STIMULATING HORMONE 1.83 mIU/mL (0.46-4.68)
[2016-07-30] MEDS: Insulin Lispro (humaLOG) MEDIUM Coverage SC SCH ×4 (10:07→22:22)
[2016-07-30] MEDS: Magnesium Oxide 400 mg Tab UD PO SCH ×2 (10:09→17:33)
[2016-07-30] MEDS: Pantoprazole 40 mg EC Tab PO SCH (10:09)
[2016-07-30] MEDS ORDERED: Magnesium Sulfate 1 gm in D5W 1 GM/100 ML BAG IV ONE (11:19)
--- NOTE | 2016-07-30 12:06 | PN ---
DATE: 07/30/2016 SUBJECTIVE: The patient is an 85-year-old black female seen and examined, seems to be much more awak e and alert, but still somewhat confused. Passed swallowing eval. We are going to start feeding her . PHYSICAL EXAMINATION: VITAL SIGNS: She is afebrile, pulse 72, respirations 20, blood pressure 160/92. LUNGS: Bilateral fair airflow, no rhonchi or crackle. HEART: S1, S2 audible. ABDOMEN: Soft, nontender, no rebound, no guarding. NEUROLOGIC: She is awake and alert, somewhat confused. Moves all extremities. LABORATORY: WBC 5.2, hemoglobin 10.4, hematocrit 31.5, platelets of 295, MCV 74. Chemistry: Sodium 138, potassium 3.5, chloride 103, CO2 of 27, BUN 10, creatinine 0.7, blood sugar 107. Calcium is 11 .0. Magnesium is 1.5. MRI of the brain is unremarkable. CT scan of the chest is unremarkable. ASSESSMENT: 1. Altered mental status with underlying dementia. 2. Electrolyte imbalance. 3. Status post fall. 4. History of seizure disorder. PLAN: I will replace potassium and magnesium, monitor her blood sugar. Follow up electrolyte in a.m . Cut down her Keppra to 500 b.i.d. Out of bed to chair, physical therapy evaluation. She might be nefit from TCU care. Will need physical therapy. Marley Fuller MD cc: [id number] TT: 07/30/2016 12:05:55 Confirmation # [id number] Dictation # [id number] veronica
--- NOTE | 2016-07-30 18:12 | PN ---
DATE: 07/30/2016 The patient is in bed. The patient seen earlier in room 363, bed 1. She is responsive, awake, appea rs to be comfortable. PHYSICAL EXAMINATION: VITAL SIGNS: Temperature of 98, blood pressure is 160/90, respiratory rate of 20, heart rate of 72. HEENT: Unremarkable. NECK: Supple. LUNGS: Have decreased breath sounds. HEART: Normal S1, S2. ABDOMEN: Soft, nontender. LABORATORY DATA: Reveals a white count of 5.2, hemoglobin of 10, platelets of 295. Coagulation is n oted. Chemistries reveal the patient's BUN is 10, creatinine of 0.7. The patient's procalcitonin of less than 0.5. Urinalysis is noted. Toxicology is noted. Microbiology reveals the blood cultures are negative. Urine cultures are negative. ASSESSMENT AND PLAN: This is an 85-year-old female with systemic inflammatory response syndrome due to hypertensive emergency, associated delirium, negative cultures, negative procalcitonin, negative C AT scan. Review of the medications and orders, off of antibiotics. Dr. Fuller's note is reviewed. No evidence of infection. Yaron Webb MD cc: [id number] TT: 07/30/2016 18:12:18 Confirmation # [id number] Dictation # [id number] jn
[2016-07-31 08:04] LABS: ALB/GLOB RATIO 1.1 (1.1-1.8); ALKALINE PHOSPHATASE 103 U/L (38-133); ALT/SGPT 23 U/L (7-56); AST/SGOT 21 U/L (15-39); BILIRUBIN,TOTAL 0.4 mg/dL (0.2-1.3); BLOOD UREA NITROGEN 7 mg/dL (7-21); CALCIUM 10.8 mg/dL (8.4-10.5); CARBON DIOXIDE 25 mmol/L (21-33); CHLORIDE 107 mmol/L (95-110); GFR AFRICAN-AMERICAN > 60; GLUCOSE,RANDOM 128 mg/dL (70-110); MAGNESIUM 1.7 mg/dL (1.7-2.2); PHOSPHOROUS 3.2 mg/dL (2.5-4.5); POTASSIUM 3.5 mmol/L (3.6-5.0); SODIUM 139 mmol/L (132-148); TOTAL PROTEIN 7.2 g/dL (5.8-8.3)
[2016-07-31] MEDS: Insulin Lispro (humaLOG) MEDIUM Coverage SC SCH ×4 (08:12→22:05)
[2016-07-31] MEDS: Fluticasone Nasal 50 mcg/Spray NS SCH (10:10)
[2016-07-31] MEDS: Pantoprazole 40 mg EC Tab PO SCH (10:58)
[2016-07-31] MEDS: Magnesium Oxide 400 mg Tab UD PO SCH ×2 (10:58→18:12)
--- NOTE | 2016-07-31 11:53 | PN ---
DATE: 07/31/2016 The patient is in bed in no acute distress, nontoxic, was seen earlier today. PHYSICAL EXAMINATION: VITAL SIGNS: Temperature is 97. Blood pressure is 199/100, respiratory rate of 18, heart rate of 82 . HEENT: Unremarkable. NECK: Supple. LUNGS: Have decreased breath sounds. HEART: Normal S1, S2. ABDOMEN: Soft, nontender. No organomegaly, no rebound, no guarding. LABORATORY EXAMINATION: Reveals a white count of 5.2, hemoglobin of 10, platelets of 295, BUN of 7, creatinine of 0.7. Urinalysis is noted. Blood cultures are negative. Urine cultures are negative. Procalcitonin is also 0.50. The patient had a CAT scan of the chest, which is unremarkable. LUNGS: Clear. REVIEW OF THE ORDERS: Reveals the patient to be off of antibiotics. ASSESSMENT AND PLAN: This is an 85-year-old female with systemic inflammatory response syndrome seco ndary due to hypertensive emergency, associated delirium, negative cultures, negative CAT scan, negat debbie procalcitonin, off of antibiotics, afebrile. The patient lives with her son. From an infectious disease point of view, if no IV antibiotics are given or no IV medications, would discontinue the heparin lock and minimize development of nosocomial infections. Yaron Webb MD cc: [id number] TT: 07/31/2016 11:52:40 Confirmation # [id number] Dictation # [id number] viraj
--- NOTE | 2016-07-31 15:04 | PN ---
DATE: 07/31/2016 SUBJECTIVE: The patient is more awake and alert today. No complaints of any headaches. She says helga ritter was able to get a good night's sleep. I spoke to the patient's family at the bedside. PHYSICAL EXAMINATION: VITAL SIGNS: Temperature is 97.1, pulse of 74, blood pressure is 199/104, respiration is 17. GENERAL: The patient comfortable, in no acute distress. HEENT: Anicteric sclerae. Moist mucosa. NECK: No JVD or adenopathy. CARDIAC: S1/S2. No murmurs. No rubs. Regular. RESPIRATORY: Clear to auscultation bilaterally. No wheezes, rales, or rhonchi. Good air entry. ABDOMEN: Bowel sounds are positive, soft, nontender, and nondistended. EXTREMITIES: No edema. Has 1+ pulses. LABORATORIES: Creatinine 0.7. White count of 5.2. ASSESSMENT: 1. Delirium and dementia, improving. 2. Fall. 3. Seizures. 4. Anemia, chronic, iron deficiency type. 5. Hypercalcemia. 6. Hypomagnesemia. PLAN: The patient is comfortable. She is eating better. She is on Keppra for seizures. She is on magnesium replacement for low magnesium. She had blood cultures and urine cultures, which were negat debbie. She is on Protonix. She is on dysphagia diet. She and her family are asking about nasal spray to use. I will place her on Flonase. Mohamud Pulido MD cc: [id number] TT: 07/31/2016 15:04:02 Confirmation # [id number] Dictation # [id number] en
[2016-08-01] MEDS: Insulin Lispro (humaLOG) MEDIUM Coverage SC SCH ×4 (07:41→22:01)
[2016-08-01] MEDS: Fluticasone Nasal 50 mcg/Spray NS SCH (10:01)
[2016-08-01] MEDS: Pantoprazole 40 mg EC Tab PO SCH (10:03)
[2016-08-01] MEDS: Magnesium Oxide 400 mg Tab UD PO SCH ×2 (10:03→17:23)
--- NOTE | 2016-08-01 13:10 | PN ---
DATE: 08/01/2016 SUBJECTIVE: The patient is 85 years old, seen and examined. She is awake and alert, but confused an d disoriented. According to nursing ____, not eating well. PHYSICAL EXAMINATION: VITAL SIGNS: She is afebrile, pulse 76, respirations 20, blood pressure 151/103. LUNGS: Bilateral fair airflow. No rhonchi or crackle. HEART: S1, S2 audible. ABDOMEN: Soft, nontender. No rebound, no guarding. NEUROLOGIC: She is awake and alert, but confused and disoriented. LABORATORY DATA: Blood sugar 125. Magnesium is 1.5. Blood culture and urine cultures are negative. MRI of the brain is negative. CT scan of the chest: Unremarkable. ASSESSMENT: 1. Altered mental status. 2. Single spike of fever on the day of admission, but all cultures are negative. There is no source to be treated. 3. History of seizure disorder. PLAN: The patient was evaluated by physical therapy, needs subacute rehab. construction services technician are in t he process of making decision for her placement. Once she is accepted to subacute rehab, she will be discharged today. Marley Fuller MD cc: [id number] TT: 08/01/2016 13:09:31 Confirmation # [id number] Dictation # [id number] viraj
--- NOTE | 2016-08-01 20:00 | PN ---
DATE: 08/01/2016 HISTORY OF PRESENT ILLNESS: The patient is an 85-year-old female who is currently being observed on the medical/surgical unit. She was originally very delirious and altered mental status with poor com munication. However, today her mental status is much improved. She is awake, alert. She is aware o f her surroundings. She is oriented to place, month, and year, but not day. Her recent memory is cl ouded as to events leading up to her hospital stay. However, she did realize that she had fallen. H er thought processes are much better, well integrated. She has no hallucinations, paranoia, agitatio n, or suicidal ideation. LABORATORY DATA: There is no current laboratory data to report. Yesterday, her sodium was 130, pota ssium was 3.5, chloride 107, CO2 25, BUN 11, creatinine 0.7. Random glucose is 128. CURRENT MEDICATIONS: Include Flonase. There is an order for oswaldo Wagner, which she has not receiv ed. She is receiving Keppra 500 mg b.i.d., the dose of which was lowered. The patient has Lopressor , Mag-Ox, Protonix. VITAL SIGNS: Her blood pressure is 106/59, pulse 68, she is afebrile, respirations 20 per minute. IMPRESSION: Status post delirium, status post syncope. She is status post history of a seizure diso rder, history of past cerebrovascular accident in 04/2016. She has possible previous perhaps oversed ation from Keppra. She has insulin-dependent diabetes mellitus. PLAN: The patient, from my point of view, can be discharged when medically stable and support is nilton e in family, although she might benefit from some subacute rehab. Taz Fernandez MD cc: [id number] TT: 08/01/2016 20:00:12 Confirmation # [id number] Dictation # [id number] dn
[2016-08-02] MEDS ORDERED: Pantoprazole 40 mg EC Tab PO SCH (06:06)
[2016-08-02] MEDS: Insulin Lispro (humaLOG) MEDIUM Coverage SC SCH ×3 (08:00→17:18)
[2016-08-02] MEDS: Fluticasone Nasal 50 mcg/Spray NS SCH (09:13)
[2016-08-02] MEDS: Magnesium Oxide 400 mg Tab UD PO SCH ×2 (09:13→17:28)
--- NOTE | 2016-08-02 12:53 | CP.PCM.PN ---
Subjective - Date & Time of Evaluation Date of Evaluation: 08/02/16 Time of Evaluation: 10:10 - Subjective Subjective: Comfortable in bed, not in distress, afebrile. Objective - Vital Signs/Intake and Output Vital Signs (last 24 hours): Temp Pulse Resp BP Pulse Ox 98.2 F 76 20 151/103 H 98 08/01/16 08:31 08/01/16 08:31 08/01/16 08:31 08/01/16 08:31 08/01/16 08:31 Intake and Output: 08/01/16 08/01/16 06:59 18:59 Intake Total 300 Balance 300 - Medications Medications: Current Medications Acetaminophen (Tylenol 325mg Tab) 650 mg PO Q6H PRN PRN Reason: Fever >100.4 F Fluticasone Propionate (Flonase) 1 actuation NS DAILY [facility] Last Admin: 07/31/16 10:10 Dose: 1 spray Insulin Human Lispro (Humalog Med) 0 units SC ACHS [facility] PRN Reason: Protocol Last Admin: 08/01/16 07:41 Dose: Not Given Levetiracetam (Keppra) 500 mg PO BID [facility] Last Admin: 07/31/16 18:12 Dose: 500 mg Magnesium Oxide (Mag-Ox) 400 mg PO BID [facility] Last Admin: 07/31/16 18:12 Dose: 400 mg Metoprolol Tartrate (Lopressor) 25 mg PO BID [facility] Last Admin: 07/31/16 18:12 Dose: 25 mg Pantoprazole Sodium (Protonix Ec Tab) 40 mg PO 0630 [facility] Last Admin: 07/31/16 10:58 Dose: 40 mg Ziprasidone (Geodon Inj) 10 mg IM Q6H PRN PRN Reason: Agitation Last Admin: 07/31/16 21:04 Dose: 10 mg - Labs Labs: 07/30/16 07:45 07/31/16 07:25 PT 11.3 Seconds (9.9-11.8) 07/28/16 06:40 INR 1.05 (0.93-1.08) 07/28/16 06:40 APTT 22.7 Seconds (23.7-30.8) L 07/28/16 06:40 - Constitutional Appears: Non-toxic, No Acute Distress - Head Exam Head Exam: NORMAL INSPECTION - ENT Exam ENT Exam: Mucous Membranes Moist - Neck Exam Neck Exam: absent: Lymphadenopathy, Meningismus - Respiratory Exam Respiratory Exam: Decreased Breath Sounds - Cardiovascular Exam Cardiovascular Exam: +S1, +S2 - GI/Abdominal Exam GI & Abdominal Exam: Soft. absent: Tenderness Assessment and Plan - Assessment and Plan (Free Text) Plan: Assessment Systemic Inflammatory Response Syndrome, probably due to hypertensive urgency with associated delirium; no source of sepsis identified Seizure disorder HTN DM trigeminal neuralgia dementia Plan Blood and urine cx are negative, CT chest negative for infiltrates - will continue to observe off antibiotics since she is at risk for nosocomial infections
[2016-08-02 17:28] VITALS: BP 161/79; PULSE 61
--- NOTE | 2016-08-02 18:26 | PN ---
DATE: 08/02/2016 HISTORY OF PRESENT ILLNESS: The patient was seen earlier today around noontime. She is an 85-year-o ld female who was originally admitted to the hospital due to radical change in personality after christiano coffman found on the floor of her home. Today, the patient's mental status reveals that she was sitting in the chair at bedside. She was awake, she was alert. She was minimally confused. Did not know quit e what year it was, thinking it was 2006 rather than 2016, although knew the day and knew the month. Her recent memory was minimally impaired. She was not having any hallucinations, agitation, nervous ness or incoherent behavior over the past 24 hours. The patient denied any depression, suicidal idea tion. CURRENT MEDICATIONS: Included Lopressor 25 mg b.i.d., sliding scale insulin, Mag-Ox. She had an ord er for Geodon 10 mg IM q. 6 hours p.r.n. for agitation, which she last had Monday evening at 9:00 at night, which was on 07/31/2016. The patient also was on Keppra 500 mg b.i.d., Flonase, Protonix. LABORATORY DATA: She has no new laboratory data to report. REVIEW OF SYSTEMS: She denies any pain, chest pain, shortness of breath, abdominal pain or headache. Other 10-point review noncontributory. CURRENT VITAL SIGNS: Her blood pressure is 161/79, pulse was 57, respirations 18 per minute and afeb rile. IMPRESSION: The patient has resolving delirium. She has a history of cerebrovascular disorder. She had a stroke in 04/2016. She has a history of a seizure disorder. She has a history of insulin-dep endent diabetes mellitus. PLAN: We will continue to review any necessary psychotropic medicine and I will also monitor her men eunice status. Taz Fernandez MD cc: [id number] TT: 08/02/2016 18:25:53 Confirmation # [id number] Dictation # [id number]
[2016-08-02 19:05] VITALS: RESP 20; TEMP 97; O2SAT 100
--- NOTE | 2016-08-03 08:07 | DS ---
The patient is an 85-year-old, seen and examined, seems to be much more clear. Answers appropriately , sitting in chair, eating fair. PHYSICAL EXAMINATION: VITAL SIGNS: She is afebrile, pulse 65, respirations 18, blood pressure 127/77. LUNGS: Bilateral fair airflow, no rhonchi or crackle. HEART: S1, S2 audible. ABDOMEN: Soft, nontender, no rebound, no guarding. NEUROLOGIC: She is awake and alert, able to communicate, comprehend and answer appropriately. EXTREMITIES: Bilateral leg, no edema. LABORATORY EXAM: Blood sugar is 125. LFTs and urine drug screen are negative. Blood culture and ur ine cultures are negative. ASSESSMENT: 1. Altered mental status. 2. Status post fall. 3. History of seizure disorder. 4. Mild dementia. PLAN: The patient's workup including CT scan of the chest and MRI of the brain is unremarkable. The patient was on high dose of Keppra and that has been reduced to 500 twice a day. That seems to be i mproving her general overall behavior. Discussed with criminal justice social worker. They are making arrangements to send her to subacute rehab. Once she is accepted, she will be discharged today. Marley Fuller MD cc: [id number] TT: 08/02/2016 17:20:54 nd
== END 2016-08-02 20:57 | DRG 305 ==
LOC: ED 05:44 → ERH 08:40 → 3RNO 15:44 → OBSVTOIN 07-29 12:14
PROVIDERS: ADMIT Internal Medicine; ATTEND Internal Medicine
DX: I16.1 Hypertensive emergency (principal); R65.10 Systemic inflammatory response syndrome (SIRS) of non-infectious origin without acute organ dysfunction; I69.354 Hemiplegia and hemiparesis following cerebral infarction affecting left non-dominant side; F03.90 Unspecified dementia, unspecified severity, without behavioral disturbance, psychotic disturbance, mood disturbance, and anxiety; F05 Delirium due to known physiological condition; G93.89 Other specified disorders of brain; I16.0 Hypertensive urgency; E83.42 Hypomagnesemia; E83.52 Hypercalcemia; R13.10 Dysphagia, unspecified; E11.9 Type 2 diabetes mellitus without complications; G40.909 Epilepsy, unspecified, not intractable, without status epilepticus; I10 Essential (primary) hypertension; R53.1 Weakness; G50.0 Trigeminal neuralgia; D50.9 Iron deficiency anemia, unspecified; Z79.84 Long term (current) use of oral hypoglycemic drugs; Z79.4 Long term (current) use of insulin; W19.XXXA Unspecified fall, initial encounter; Y92.009 Unspecified place in unspecified non-institutional (private) residence as the place of occurrence of the external cause